=== PATIENT | female | born 1970 | race Hispanic/Latino ===

== ENCOUNTER 2017-12-27 15:54 | Emergency (ER) | payer BC ==
[2017-12-27 16:00] VITALS: BP 124/75
[2017-12-27] MEDS ORDERED: BOOSTRIX IM ONE (17:38)
[2017-12-27] MEDS ORDERED: XYLOCAINE 1% MPF 5 mL INFILTRATI ONE (17:38)
--- NOTE | 2017-12-27 17:41 | Emergency Department Report ---
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 Complaint: Injury to:: left, forearm Onset/Timin -: hour(s) Other Extremity Injury: Forearm: Left Other Injuries: none Handedness: right Place: home Severity scale (0 -10): 8 Improves With: none Worsens With: none Context: laceration Associated Symptoms: denies: weakness, numbness, neck pain, suspects foreign body, nausea/vomiting, heard/felt popping sensat Treatments Prior to Arrival: bandage - Related Data Previous Rx's Medication Instructions Recorded Last Taken Type Ibuprofen [Motrin 600 MG tab] 600 mg PO Q8H PRN #20 tablet 12/27/17 Unknown Rx Allergies Allergy/AdvReac Type Severity Reaction Status Date / Time No Known Allergies Allergy Unverified 12/27/17 15:57 ED Review of Systems ROS: Stated complaint: CUT ON ARM Other details as noted in HPI Constitutional: denies: chills, fever Eyes: denies: eye pain, eye discharge, vision change ENT: denies: ear pain, throat pain Respiratory: denies: cough, orthopnea, shortness of breath, wheezing Cardiovascular: denies: chest pain, palpitations, dyspnea on exertion, orthopnea Gastrointestinal: denies: abdominal pain, nausea, vomiting, diarrhea Musculoskeletal: denies: back pain, joint swelling, arthralgia Skin: other (1 cm laceration left forearm). denies: rash, lesions, change in color, change in hair/nails, pruritus Neurological: denies: headache, weakness, paresthesias Psychiatric: denies: anxiety, depression Hematological/Lymphatic: denies: easy bleeding, easy bruising ED Past Medical Hx - Past Medical History Previous Medical History?: No - Surgical History Past Surgical History?: Yes Additional Surgical History: Tonsillectomy, Tubaligation - Social History Smoking Status: Former Smoker Substance Use Type: Alcohol - Medications Home Medications: Home Medications Medication Instructions Recorded Confirmed Last Taken Type Ibuprofen [Motrin 600 MG tab] 600 mg PO Q8H PRN #20 tablet 06/09/18 Unknown Rx ED Physical Exam - General Limitations: No Limitations General appearance: alert, in no apparent distress - Head Head exam: Present: atraumatic, normocephalic - Neck Neck exam: Present: normal inspection, full ROM. Absent: tenderness, meningismus, lymphadenopathy, thyromegaly - Respiratory Respiratory exam: Present: normal lung sounds bilaterally. Absent: respiratory distress, wheezes, rales, rhonchi, stridor, chest wall tenderness, accessory muscle use, decreased breath sounds, prolonged expiratory - Cardiovascular Cardiovascular Exam: Present: regular rate, normal rhythm, normal heart sounds. Absent: systolic murmur, diastolic murmur, rubs, gallop - Expanded Upper Extremity Exam Left Shoulder Exam: Present: normal inspection, full ROM Upper Arm exam: Present: normal inspection, full ROM Elbow exam: Present: normal inspection, full ROM. Absent: tenderness, swelling , abrasion, laceration, ecchymosis, deformity, crepidus, dislocation, erythema, effusion, pain w/ pronation/supination, tenderness over radial head Forearm Wrist exam: Present: full ROM, laceration (1 cm linear laceration left anterior forearm). Absent: tenderness, swelling, abrasion, ecchymosis, deformity, crepidus, dislocation, erythema, tenderness over anatomical snuff box , pain with axial thumb loading Hand Wrist exam: Present: normal inspection, full ROM. Absent: tenderness, swelling, abrasion, laceration, ecchymosis, deformity, crepidus, dislocation, erythema, amputation, nail avulsion, subungual hematoma Neuro motor exam: Present: wrist extension intact, thumb opposition intact, thumb IP flexion intact, thumb adduction intact, fingers 2-5 abduction intact Neurosensory exam: Present: 2-point discrimination, radial nerve intact, ulnar nerve intact, median nerve intact Vascular: Present: normal capillary refill, radial pulse (2+), brachial pulse (2 +), ulnar pulse (2+). Absent: vascular compromise, Pallo, pulse deficit radial art, pulse deficit ulnar art, pulse deficit brachial art - Neurological Exam Neurological exam: Present: alert, oriented X3, CN II-XII intact, normal gait, reflexes normal. Absent: motor sensory deficit - Psychiatric Psychiatric exam: Present: normal affect, normal mood - Skin Skin exam: Present: warm, dry, normal color. Absent: rash ED Course Vital Signs 12/27/17 15:57 Temperature 98.4 F Pulse Rate 73 Respiratory 20 Rate Blood Pressure 124/75 O2 Sat by Pulse 98 Oximetry - Reevaluation(s) Reevaluation #1: 12/27/17 17:40 tetanus and laceration with suture set up tray - Laceration /Wound Repair Left Anterior Arm Wound Location: upper extremity (left anterior forearm) Wound Length (cm): 1 Wound's Depth, Shape: linear Wound Explored: clean Irrigated w/ Saline (ccs): 50 Betadine Prep?: Yes Anesthesia: 1% Lidocaine Volume Anesthetic (ccs): 3 Wound Debrided: none Wound Repaired With: sutures Suture Size/Type: 4:0, nylon Number of Sutures: 3 Layer Closure?: Yes Sterile Dressing Applied?: No Progress: Patient tolerated the procedure well ED Medical Decision Making - Lab Data Vital Signs 12/27/17 15:57 Temperature 98.4 F Pulse Rate 73 Respiratory 20 Rate Blood Pressure 124/75 O2 Sat by Pulse 98 Oximetry - Medical Decision Making During the course of ED, tetanus and laceration repair set up ordered. Patient tolerated the 3 sutures placed in the left anterior forearm without any problems. She was sent home with wound care instructions and a prescription for Ibuprofen, instructed to follow up in the ED in 8-10 days for suture removal, she verbalized understanding - Differential Diagnosis Left Forearm Laceration Critical care attestation.: If time is entered above; I have spent that time in minutes in the direct care of this critically ill patient, excluding procedure time. ED Disposition Clinical Impression: Laceration Disposition: DC-01 TO HOME OR SELFCARE Is pt being admited?: No Does the pt Need Aspirin: No Condition: Stable Instructions: Suture Care (ED), Laceration (ED) Additional Instructions: Take medication as directed. Return back to the ED in 8-10 days for suture removal. Monitor for signs of infection such as increase pain, redness, fever and drainage Prescriptions: Ibuprofen [Motrin 600 MG tab] 600 mg PO Q8H PRN #20 tablet PRN Reason: Pain Referrals: PRIMARY CARE,MD [Primary Care Provider] - 3-5 Days Time of Disposition: 18:32
== END 2017-12-27 18:42 | disposition home or self-care (01) ==
LOC: ED 15:54
DX: S51.812A Laceration without foreign body of left forearm, initial encounter (principal); Z90.89 Acquired absence of other organs; Z98.51 Tubal ligation status; Z87.891 Personal history of nicotine dependence; W26.8XXA Contact with other sharp object(s), not elsewhere classified, initial encounter; Y93.89 Activity, other specified; Y99.8 Other external cause status; Y92.098 Other place in other non-institutional residence as the place of occurrence of the external cause
CPT/HCPCS: 90471; 90715